=== PATIENT | male | born 1980 | race Caucasian/White ===

== ENCOUNTER 2016-09-02 11:46 | Emergency (ER) | payer OTHER ==
[~2016-09-02] VITALS: Ht 177.8 cm; Wt 100.0 kg
[2016-09-02 11:48] VITALS: BP 141/75; PULSE 81; RESP 16; TEMP 97.7; O2SAT 99
[2016-09-02] MEDS ORDERED: ORPHENADRINE CITRATE 100 MG SUSTAINED RELEASE TAB PO ONE (12:15)
[2016-09-02] MEDS ORDERED: IBUPROFEN 800 MG TAB PO ONE (12:15)
[2016-09-02] MEDS ORDERED: ACETAMINOPHEN 325 MG TAB PO ONE (12:15)
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
[2016-09-02] MEDS ORDERED: ORPH100T99 PO (12:25)
[2016-09-02] MEDS ORDERED: IBUP800T23 PO (12:25)
[2016-09-02] MEDS ORDERED: EXTR500C PO (12:25)
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
== END 2016-09-02 13:39 | disposition home or self-care (01) ==
LOC: NEPB 11:46
DX: S46.912A Strain of unspecified muscle, fascia and tendon at shoulder and upper arm level, left arm, initial encounter (principal); V64.6XXA Passenger in heavy transport vehicle injured in collision with heavy transport vehicle or bus in traffic accident, initial encounter; Y99.0 Civilian activity done for income or pay
CPT/HCPCS: 73030; 99284